=== PATIENT | male | born 1960 | race Caucasian/White ===

== ENCOUNTER 2023-02-22 09:50 | Emergency (ER) | payer OTHER ==
[~2023-02-22] VITALS: Ht 177.8 cm; Wt 95.2 kg
[~2023-02-22 09:50] MED LIST: AZATHIOPRINE50 MG PO; AZULFIDINE500 MG PO; BETIMOL5 M1 OPTH; EYLEA2 MG/0.05; FINASTERIDE1 MG PO; FLOMAX0.4 MG PO; OMEPRAZOLE20 MG PO; SYNTHROID25 MCG PO; VITAMIN D250 MC1 PO
[2023-02-22 10:00] LABS: BASOPHILS 0.7 % (0-2); EOSINOPHILS 1.7 % (0-6); HEMOGLOBIN 14.1 g/dL (12.0-18.0); MCH 27.5 (27-36); MCHC 32.1 g/dl (30-36); MCV 85.8 fl (81-99); MONOCYTES 8.2 % (0-12); NEUTROPHILS 73.4 % (39-80); PLATELET COUNT 297 K/uL (140-440); RBC 5.13 M/ul (4.3-5.7); RDW 13.5 (10.5-15.0)
[2023-02-22 10:12] LABS: INR 0.99 (0.80-1.30); PROTIME 12.7 Sec (11.2-14.2)
[2023-02-22 10:14] LABS: PARTIAL THROMBOPLASTIN TIME 28.1 Sec (22.9-41.3)
[2023-02-22 10:16] LABS: ALBUMIN 3.3 g/dL (3.4-5.0); ALBUMIN/GLOBULIN RATIO 0.89 (1.1-2.4); ANION GAP 12.5 (7-21); BILIRUBIN, TOTAL 0.5 ng/dL (0.2-1.0); BUN/CREATININE RATIO 17.82 (6.0-28.6); CALCIUM 8.6 mg/dL (8.5-10.1); CREATININE, SERUM 1.01 mg/dL (0.70-1.30); POTASSIUM 4.5 mmol/L (3.5-5.1)
[2023-02-22 16:11] VITALS: BP 140/83
--- NOTE | 2023-02-22 21:45 | EKG ---
[facility] [address] [place] [address] Signed Normal sinus rhythm Right superior axis deviation Possible Right ventricular hypertrophy Abnormal ECG No previous ECGs available Confirmed by Esteban Denney MD () on 02/22/2023 9:45:02 PM Electronically Signed By: ESTEBAN DENNEY MD 02/22/235 PATIENT NAME: LALITHA FUENTES Electrocardiogram DATE OF : 60 PHYSICIAN: ESTEBAN DENNEY MD REPORT #: [id number] REPORT IS CONFIDENTIAL AND NOT TO BE RELEASED WITHOUT AUTHORIZATION
== END 2023-02-22 16:11 | disposition home or self-care (01) ==
LOC: ED 09:50
PROVIDERS: Emergency Medicine
DX: R20.2 Paresthesia of skin (principal); R55 Syncope and collapse; Z79.899 Other long term (current) drug therapy; Z88.5 Allergy status to narcotic agent; M79.604 Pain in right leg; M79.641 Pain in right hand
CPT/HCPCS: 36415; 70450; 70496; 70498; 70551; 71045; 80053; 82553; 85025; 85610; 85730; 93005; 93010; 99285-25; Q9967

== ENCOUNTER 2023-04-20 15:30 | Emergency (ER) | payer OTHER ==
[~2023-04-20] VITALS: Ht 175.3 cm; Wt 90.7 kg
[2023-04-20 15:46] LABS: BASOPHILS 0.4 % (0-2); EOSINOPHILS 0.3 % (0-6); HEMATOCRIT 41.7 % (35.0-50.0); HEMOGLOBIN 13.9 g/dL (12.0-18.0); LYMPHOCYTES 15.3 % (24-44); MCH 28.2 (27-36); MCHC 33.3 g/dl (30-36); MCV 84.9 fl (81-99); MONOCYTES 6.2 % (0-12); NEUTROPHILS 77.8 % (39-80); PLATELET COUNT 235 K/uL (140-440); RBC 4.91 M/ul (4.3-5.7); RDW 13.9 (10.5-15.0)
[2023-04-20 16:04] LABS: ALBUMIN 3.1 g/dL (3.4-5.0); ALBUMIN/GLOBULIN RATIO 0.86 (1.1-2.4); ALKALINE PHOSPHATASE 53 U/L (46-116); ALT (SGPT) 20 U/L (14-59); AST (SGOT) 26 U/L (15-37); BILIRUBIN, TOTAL 0.4 ng/dL (0.2-1.0); BUN/CREATININE RATIO 17.92 (6.0-28.6); CALCIUM 8.8 mg/dL (8.5-10.1); CARBON DIOXIDE 25 mmol/L (21-32); CREATININE, SERUM 1.06 mg/dL (0.70-1.30); GLOMERULAR FILTRATION RATE,EST 79 mL/min (>60); PROTEIN, TOTAL 6.7 g/dL (6.4-8.2); UREA NITROGEN 19 mg/dL (7-18)
[2023-04-20 16:08] LABS: ANION GAP 14.6 (7-21); CHLORIDE 103 mmol/L (98-107); POTASSIUM 4.6 mmol/L (3.5-5.1)
--- NOTE | 2023-04-21 11:57 | EKG ---
[facility] [address] [facility] [place], [place] [address] Signed Normal sinus rhythm with sinus arrhythmia Right axis deviation Possible Right ventricular hypertrophy Abnormal ECG No previous ECGs available Confirmed by Clay Gonzalez MD ([id number]) on 04/21/2023 11:57:03 AM Electronically Signed By: CLAY GONZALEZ 04/21/23 1157 PATIENT NAME: LALITHA FUENTES Electrocardiogram DATE OF : 60 PHYSICIAN: CLAY GONZALEZ REPORT #: [id number] REPORT IS CONFIDENTIAL AND NOT TO BE RELEASED WITHOUT AUTHORIZATION
== END 2023-04-20 16:38 | disposition home or self-care (01) ==
LOC: ED 15:30
PROVIDERS: Emergency Medicine
DX: R07.89 Other chest pain (principal); Z88.5 Allergy status to narcotic agent; Z79.899 Other long term (current) drug therapy
CPT/HCPCS: 36415; 71045; 80053; 83735; 84484; 85025; 93005; 93010; 99285-25

== ENCOUNTER 2024-01-04 09:01 | Emergency (ER) | payer OTHER ==
[~2024-01-04] VITALS: Ht 175.3 cm; Wt 95.0 kg
[2024-01-04] MEDS ORDERED: HYDROCODONE/ACETA 5/325 TAB PO ONE (10:00)
[2024-01-04] MEDS ORDERED: METHOTREXA25 MG/1 M3 INJ (10:19)
[2024-01-04] MEDS ORDERED: LEXAPRO20 MG PO (10:19)
[2024-01-04] MEDS ORDERED: FOLIC ACID1 MG PO (10:20)
[2024-01-04] MEDS ORDERED: HYDROCODON-ACE1 EA10 PO (10:36)
[2024-01-04 10:47] VITALS: BP 112/70
== END 2024-01-04 10:47 | disposition other institution, planned readmission (95) ==
LOC: ED 09:01
DX: M25.562 Pain in left knee (principal); N40.0 Benign prostatic hyperplasia without lower urinary tract symptoms; Z88.5 Allergy status to narcotic agent; Z79.899 Other long term (current) drug therapy; W18.49XA Other slipping, tripping and stumbling without falling, initial encounter
CPT/HCPCS: 73560; 99283

== ENCOUNTER 2024-05-22 16:26 | Emergency (ER) | payer OTHER ==
[~2024-05-22] VITALS: Ht 175.3 cm; Wt 95.0 kg
[~2024-05-22 16:26] MED LIST changes: +FOLIC ACID1 MG PO; +HYDROCODON-ACE1 EA10 PO; +LEXAPRO20 MG PO; +METHOTREXA25 MG/1 M3 INJ
[2024-05-22 17:17] LABS: ALBUMIN 3.1 g/dL (3.4-5.0); ALBUMIN/GLOBULIN RATIO 0.86 (1.1-2.4); ANION GAP 15.5 (7-21); BILIRUBIN, TOTAL 0.5 mg/dL (0.2-1.0); BUN/CREATININE RATIO 18.82 (6.0-28.6); CALCIUM 8.4 mg/dL (8.5-10.1); CREATININE, SERUM 0.85 mg/dL (0.70-1.30); POTASSIUM 4.5 mmol/L (3.5-5.1); PROTEIN, TOTAL 6.7 g/dL (6.4-8.2)
[2024-05-22 18:00] LABS: BASOPHILS 0.2 % (0-2); EOSINOPHILS 0.1 % (0-6); HEMOGLOBIN 14.8 g/dL (12.0-18.0); LYMPHOCYTES 5.6 % (24-44); MCHC 33.6 g/dl (30-36); MCV 89.5 fl (81-99); MONOCYTES 6.8 % (0-12); NEUTROPHILS 87.3 % (39-80); PLATELET COUNT 236 K/uL (140-440); RBC 4.92 M/ul (4.3-5.7); RDW 15.1 (10.5-15.0)
[2024-05-22] MEDS ORDERED: MORPHINE SULFATE 4 MG/ML VIAL IV ONE (19:30)
[2024-05-22] MEDS ORDERED: KETOROLAC TROMETHAMINE 30 MG/ML VIAL IV ONE (19:30)
[2024-05-22 19:45] LABS: BILIRUBIN, URINE NEGATIVE (negative); BLOOD/HGB, URINE NEGATIVE (Negative); KETONE, URINE SMALL (Negative); LEUK ESTERASE, URINE NEGATIVE (negative); NITRITE, URINE NEGATIVE (negative)
[2024-05-22] MEDS ORDERED: VENTOLIN HFA18 GM (19:45)
[2024-05-22] MEDS ORDERED: METHOTREXATE2.5 MG PO (19:45)
[2024-05-22] MEDS ORDERED: ONDANSETRON ODT8 MG PO (20:26)
[2024-05-22] MEDS ORDERED: PERCOCET 5-3251 EACH PO (20:26)
[2024-05-22 20:30] VITALS: BP 127/84
[2024-05-22] MEDS ORDERED: ONDANSETRON 4 MG HOME.PACK SL ONE (20:30)
[2024-05-22] MEDS ORDERED: OXYCODONE/ACETAMINOPHEN 1 TAB HOME.PACK PO ONE (20:30)
--- NOTE | 2024-05-24 15:48 | EKG ---
[facility] [address] [facility] [place] [address] Signed Sinus rhythm with occasional premature ventricular complexes Right superior axis deviation Possible Right ventricular hypertrophy Abnormal ECG When compared with ECG of 20-AUG-2023 14:11, premature ventricular complexes are now present Questionable change in QRS axis Confirmed by Jaison Childress DO ([id number]) on 05/24/2024 3:48:25 PM Electronically Signed By: JAISON CHILDRESS DO 05/24/24 1548 PATIENT NAME: LALITHA FUENTES MADELIN Electrocardiogram DATE OF : 60 PHYSICIAN: JAISON CHILDRESS DO REPORT #: [id number] REPORT IS CONFIDENTIAL AND NOT TO BE RELEASED WITHOUT AUTHORIZATION
== END 2024-05-22 20:30 | disposition home or self-care (01) ==
LOC: ED 16:26
PROVIDERS: Emergency Medicine
DX: S22.080A Wedge compression fracture of T11-T12 vertebra, initial encounter for closed fracture (principal); R55 Syncope and collapse; E03.9 Hypothyroidism, unspecified; Z88.5 Allergy status to narcotic agent; Z88.8 Allergy status to other drugs, medicaments and biological substances; Z79.899 Other long term (current) drug therapy; W19.XXXA Unspecified fall, initial encounter
CPT/HCPCS: 36415; 70450; 72125; 72131; 74176; 80053; 81003; 84484; 85025; 93005; 93010; 96374; 96375; 99284-25; A9270; J1885; J2270

== ENCOUNTER 2024-05-26 01:59 | Emergency (ER) | payer OTHER ==
[~2024-05-26] VITALS: Ht 175.3 cm; Wt 96.0 kg
[~2024-05-26 01:59] MED LIST changes: +METHOTREXATE2.5 MG PO; +ONDANSETRON ODT8 MG PO; +PERCOCET 5-3251 EACH PO; +VENTOLIN HFA18 GM
--- OUTSIDE RECORDS SUMMARY | 2024-05-26 02:06 | XMS ---
PreManage Notification: LALITHA FUENTES Security [employer] Events No recent Security Events currently on file CRITERIA MET - [facility] - 2 Visits in 30 Days CARE PROVIDERS There are no care providers on record at this time. Sulaiman has no Care Guidelines for this patient. Jennifer VISIT COUNT (12 MO.) [address] [facility] TOTAL 4 NOTE: Visits indicate total known visits. ED/C VISIT TRACKING (12 MO.) 05/26/2024 02:[address] [facility] [place] TYPE: Emergency COMPLAINT: - BACK ISSUES 05/22/2024 16:27 [facility] [place] TYPE: Emergency COMPLAINT: - GLF DIAGNOSES: - Allergy status to narcotic agent - Allergy status to other drugs, medicaments and biological substances - Hypothyroidism, unspecified - Other marine oil terminal superintendent (current) drug therapy - Syncope and collapse - Unspecified fall, initial encounter - Wedge compression fracture of T11-T12 vertebra, initial encounter for closed fracture 01/04/2024 09:02 [facility] [place] TYPE: Emergency COMPLAINT: - LT KNEE INJURY DIAGNOSES: - Allergy status to narcotic agent - Benign prostatic hyperplasia without lower urinary tract symptoms - Other skilled nursing (current) drug therapy - Other slipping, tripping and stumbling without falling, initial encounter - Pain in left knee 08/20/2023 13:55 [facility] [place] TYPE: Emergency COMPLAINT: - FALL DIAGNOSES: - Allergy status to narcotic agent - Altered mental status, unspecified - Conjunctival hemorrhage, left eye - Other skilled nursing (current) drug therapy INPATIENT VISIT TRACKING (12 MO.) No inpatient visits to display in this time frame [email or web address]
[2024-05-26] MEDS ORDERED: KETOROLAC TROMETHAMINE 60 MG/2 ML VIAL IM ONE (02:30)
[2024-05-26] MEDS ORDERED: diazePAM 10 MG/2 ML SYR IM ONE (02:30)
[2024-05-26] MEDS ORDERED: LACTULOSE 20 GM/30 ML CUP PO ONE (03:30)
[2024-05-26] MEDS ORDERED: LACTULOSE10 GM PO (03:36)
[2024-05-26] MEDS ORDERED: COLACE100 MG PO (03:36)
[2024-05-26] MEDS ORDERED: BACLOFEN10 MG PO (03:36)
[2024-05-26] MEDS ORDERED: CYCLOBENZAPRINE HCL 10 MG HOME.PACK PO ONE (03:45)
[2024-05-26 04:10] VITALS: BP 94/79
== END 2024-05-26 04:10 | disposition home or self-care (01) ==
LOC: ED 01:59
DX: K59.03 Drug induced constipation (principal); M62.830 Muscle spasm of back; E03.9 Hypothyroidism, unspecified; Z88.5 Allergy status to narcotic agent; Z88.8 Allergy status to other drugs, medicaments and biological substances; Z79.899 Other long term (current) drug therapy
CPT/HCPCS: 74018; 96372; 99283; J1885; J3360

== ENCOUNTER 2024-06-08 14:09 | Emergency (ER) | payer OTHER ==
[~2024-06-08] VITALS: Ht 175.3 cm; Wt 100.0 kg
[~2024-06-08 14:09] MED LIST changes: +BACLOFEN10 MG PO; +COLACE100 MG PO; +LACTULOSE10 GM PO
--- OUTSIDE RECORDS SUMMARY | 2024-06-08 14:15 | XMS ---
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 Sulaiman has no Care Guidelines for this patient. Jennifer VISIT COUNT (12 MO.) [address] [facility] TOTAL 5 NOTE: Visits indicate total known visits. ED/C VISIT TRACKING (12 MO.) 06/08/2024 14:09 [facility] [place] TYPE: Emergency COMPLAINT: - ABD PAIN 05/26/2024 02:00 [facility] [place] TYPE: Emergency COMPLAINT: - BACK ISSUES DIAGNOSES: - Allergy status to narcotic agent - Allergy status to other drugs, medicaments and biological substances - Drug induced constipation - Hypothyroidism, unspecified - Muscle spasm of back - Other nursing home (current) drug therapy 05/22/2024 16:27 [facility] [place] TYPE: Emergency COMPLAINT: - GLF DIAGNOSES: - Allergy status to narcotic agent - Allergy status to other drugs, medicaments and biological substances - Hypothyroidism, unspecified - Other nursing home (current) drug therapy - Syncope and collapse - Unspecified fall, initial encounter - Wedge compression fracture of T11-T12 vertebra, initial encounter for closed fracture 01/04/2024 09:02 [facility] [place] TYPE: Emergency COMPLAINT: - LT KNEE INJURY DIAGNOSES: - Allergy status to narcotic agent - Benign prostatic hyperplasia without lower urinary tract symptoms - Other nursing home (current) drug therapy - Other slipping, tripping and stumbling without falling, initial encounter - Pain in left knee 08/20/2023 13:55 [facility] [place] TYPE: Emergency COMPLAINT: - FALL DIAGNOSES: - Allergy status to narcotic agent - Altered mental status, unspecified - Conjunctival hemorrhage, left eye - Other nursing home (current) drug therapy INPATIENT VISIT TRACKING (12 MO.) No inpatient visits to display in this time frame [email or web address]
[2024-06-08] MEDS ORDERED: ondansetron HCL 4 MG/2 ML VIAL IV ONE (17:00)
[2024-06-08 17:06] LABS: BASOPHILS 0.6 % (0-2); EOSINOPHILS 0.7 % (0-6); HEMOGLOBIN 15.7 g/dL (12.0-18.0); LYMPHOCYTES 15.9 % (24-44); MCH 29.3 (27-36); MCHC 33.3 g/dl (30-36); MCV 87.9 fl (81-99); MONOCYTES 8.3 % (0-12); NEUTROPHILS 74.5 % (39-80); PLATELET COUNT 283 K/uL (140-440); RBC 5.35 M/ul (4.3-5.7); RDW 15.3 (10.5-15.0)
[2024-06-08 17:23] LABS: ALBUMIN 3.8 g/dL (3.4-5.0); ANION GAP 9.5 (7-21); BILIRUBIN, TOTAL 0.3 mg/dL (0.2-1.0); CALCIUM 9.4 mg/dL (8.5-10.1); CREATININE, SERUM 1.13 mg/dL (0.70-1.30); POTASSIUM 4.5 mmol/L (3.5-5.1); PROTEIN, TOTAL 7.6 g/dL (6.4-8.2)
[2024-06-08] MEDS ORDERED: FAMOTIDINE40 MG PO (17:32)
[2024-06-08 18:41] LABS: BILIRUBIN, URINE NEGATIVE (negative); BLOOD/HGB, URINE TRACE-I (Negative); KETONE, URINE NEGATIVE (Negative); LEUK ESTERASE, URINE NEGATIVE (negative); NITRITE, URINE NEGATIVE (negative)
[2024-06-08 18:42] LABS: BACTERIA, URINE NONE SEEN /hpf (negative); CASTS, URINE NONE SEEN \\lpf; COLLECTION TYPE, URINE CLEAN CATCH; CRYSTALS, URINE NONE SEEN (0-1+); EPITHELIAL CELLS, URINE NONE SEEN /lpf (0-1+); REFLEX CULTURE, URINE No (No)
[2024-06-08] MEDS ORDERED: ACETAMINOPHEN 500 MG TAB PO ONE (20:30)
[2024-06-08 20:41] VITALS: BP 117/82
== END 2024-06-08 20:44 | disposition other institution, planned readmission (95) ==
LOC: ED 14:09
PROVIDERS: Emergency Medicine
DX: R10.84 Generalized abdominal pain (principal); Z88.8 Allergy status to other drugs, medicaments and biological substances; Z79.891 Long term (current) use of opiate analgesic; Z79.899 Other long term (current) drug therapy
CPT/HCPCS: 36415; 74177; 80053; 81001; 83605; 83690; 85025; 99284-25; A9270; J2405; Q9967